=== PATIENT | female | born 1975 | race Asian ===

== ENCOUNTER 2018-06-22 08:05 | Outpatient (CLI) | payer OTHER | END 2018-06-22 08:06 | disposition home or self-care (01) | LOC: DI 08:05 | PROVIDERS: ATTEND Nurse Practitioner Adult Health | DX: Z01.810 Encounter for preprocedural cardiovascular examination (principal); C90.00 Multiple myeloma not having achieved remission | CPT/HCPCS: 93005; 93306; 94010 ==

== ENCOUNTER 2018-10-22 11:36 | Emergency (ER) | payer OTHER ==
[2018-10-22] MEDS ORDERED: ACETAMINOPHEN 500 MG TABLET PO STA (14:12)
[2018-10-22] MEDS ORDERED: KETOROLAC 15 MG/ML VIAL IVP STA (14:14)
[2018-10-22] MEDS ORDERED: METOCLOPRAMIDE 10 MG/2 ML VIAL IVP STA (14:14)
--- NOTE | 2018-10-22 14:17 | ED Physician Documentation ---
PD HPI HEADACHE - Stated complaint Stated Complaint: Headache - Chief complaint Chief Complaint: Neuro - History obtained from History obtained from: Patient - History of Present Illness Timing - onset: How many days ago (3) Timing - onset during: Rest Timing - duration: Days (3) Timing - details: Gradual onset Pain level max: 8 Pain level now: 3 Severity Comments: mild Worst headache ever?: Worst headache ever? (Yes but now better) Location: Front Quality: Other (Pressure) Associated symptoms: No: Fever, Stiff neck, Nausea, Vomiting, Syncope Improved by: No: Rest, Dark room, Quiet Worsened by: No: Light, Noise Contributing factors: Other (History of MM s/p stem cell transplant) Similar symptoms before: Other (History of migraines) - Treatment prior to arrival Treatment prior to arrival: None Review of Systems Ten Systems: 10 systems reviewed and negative Constitutional: reports: Reviewed and negative Eyes: reports: Reviewed and negative Ears: reports: Reviewed and negative Nose: reports: Reviewed and negative Throat: reports: Reviewed and negative Cardiac: reports: Reviewed and negative Respiratory: reports: Reviewed and negative GI: reports: Reviewed and negative : reports: Reviewed and negative Skin: reports: Reviewed and negative Musculoskeletal: reports: Reviewed and negative Neurologic: reports: Reviewed and negative Psychiatric: reports: Reviewed and negative Endocrine: reports: Reviewed and negative Immunocompromised: reports: Reviewed and negative PD PAST MEDICAL HISTORY - Past Medical History Past Medical History: Yes Cardiovascular: None Respiratory: Shortness of breath Neuro: None Endocrine/Autoimmune: None GI: GERD : None HEENT: None Psych: Depression, Anxiety Musculoskeletal: Chronic back pain Derm: Eczema Other Past Medical History: Multiple Myeloma - Past Surgical History 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 - Present Medications Home Medications: Ambulatory Orders Medication Instructions Recorded Confirmed Prochlorperazine Maleate 10 mg PO Q6H PRN #30 tablet 01/12/18 10/15/18 [Compazine] RX: Ondansetron HCl [Zofran] 8 mg PO Q8H PRN #30 tablet 01/12/18 10/15/18 RX: Loratadine 1 cap PO DAILY 02/05/18 10/15/18 RX: Senna [Senokot] 1 tab PO DAILY 02/05/18 10/15/18 Fluticasone Propionate [Flovent 50 mcg IH DAILY 09/21/18 10/15/18 Diskus] RX: Acyclovir 800 mg PO BID 09/21/18 10/15/18 RX: Dapsone 25 mg PO BID 09/21/18 10/15/18 RX: LORazepam [Ativan] 1 mg PO PRN PRN 09/21/18 10/15/18 RX: oxyCODONE [Roxicodone] 5 mg PO PRN PRN 09/21/18 10/15/18 Butalb/Acetaminophen/Caffeine 1 each PO 1-2XD PRN #30 capsule 10/22/18 [Fioricet 50-300-40 mg Capsule] RX: Fluconazole [Diflucan] 200 mg PO DAILY 3 Days #3 tablet 10/22/18 - Allergies Allergies/Adverse Reactions: Allergies Allergy/AdvReac Type Severity Reaction Status Date / Time sulfamethoxazole Allergy Unknown Verified 10/22/18 11:56 [From Bactrim] trimethoprim [From Bactrim] Allergy Unknown Verified 10/22/18 11:56 - Living Situation Living Arrangement: reports: At home - Social History Does the pt smoke?: No Does the pt drink ETOH?: No Does the pt have substance abuse?: No - Family History Family history: reports: Other (REviewed and not relevant) PD ED PE NORMAL - Vitals Vital signs reviewed: Yes - General General: Alert and oriented X 3, No acute distress - HEENT HEENT: PERRL - Neck Neck: Supple, no meningeal sign - Cardiac Cardiac: RRR, No murmur - Respiratory Respiratory: Clear bilaterally - Abdomen Abdomen: Normal bowel sounds, Soft, Non tender, Non distended - Derm Derm: Warm and dry - Extremities Extremities: No deformity - Neuro Neuro: Alert and oriented X 3 - Psych Psych: Normal mood, Normal affect Results - Vitals Vitals: Vital Signs - 24 hr 10/22/18 10/22/18 10/22/18 11:43 12:30 13:45 Temperature 36.7 C Heart Rate 74 67 86 Respiratory 16 20 18 Rate Blood Pressure 122/63 128/84 H 108/67 O2 Saturation 97 97 100 10/22/18 15:29 Temperature Heart Rate 87 Respiratory 18 Rate Blood Pressure 127/64 O2 Saturation 98 Oxygen O2 Source Room air - Labs Labs: Laboratory Tests 10/22/18 10/22/18 12:55 12:55 Urine Color YELLOW Urine Clarity CLEAR Urine pH 6.5 Ur Specific [place] 1.010 1.010 Urine Protein NEGATIVE Urine Glucose (UA) NEGATIVE Urine Ketones NEGATIVE Urine Occult Blood NEGATIVE Urine Nitrite NEGATIVE Urine Bilirubin NEGATIVE Urine Urobilinogen 0.2 (NORMAL) Ur Leukocyte Esterase NEGATIVE Ur Microscopic Review NOT INDICATED Urine Culture Comments NOT INDICATED Urine HCG, Qual NEGATIVE - Rads (name of study) Head CT Radiology: Prelim report reviewed, EMP read indepedently, See rad report, Other (No acute abnormality) PD MEDICAL DECISION MAKING - ED course ED course: 43-year-old female with history of multiple myeloma presents with headache. Headache is worst of life but head CT was unremarkable. Patient refused any treatment for headache. Patient's oncologist Dr. Jean was consulted who recommended routine follow-up given negative head CT. Dr. Jean also recommended Fioricet as needed for headache. Departure - Departure Disposition: 01 Home, Self Care Clinical Impression: Headache Qualifiers: Headache type: unspecified Headache chronicity pattern: acute headache Intractability: not intractable Qualified Code(s): R51 - Headache Condition: Stable Record reviewed to determine appropriate education?: Yes Instructions: ED Headache Tension Follow-Up: MITCHEL HAWKINS DO [Primary Care Provider] - Prescriptions: Butalb/Acetaminophen/Caffeine [Fioricet 50-300-40 mg Capsule] 1 each PO 1-2XD PRN #30 capsule PRN Reason: Headache Comments: Follow up with your doctors as scheduled. Take Fioricet as needed for headache according to prescription. Discharge Date/Time: 10/22/18 15:34
--- NOTE | 2018-10-22 14:58 | CT Report ---
Reason: Worst headache of life Procedure Date: 10/22/2018 Accession Number: [id number] / [id number] Procedure: CT - Head W/O CPT Code: FULL RESULT: EXAM: CT HEAD EXAM DATE: 10/22/2018 02:33 PM. CLINICAL HISTORY: Worst headache of life. COMPARISON: None. TECHNIQUE: Multiaxial CT images were obtained from the foramen magnum to the vertex. Reformats: Sagittal and coronal. IV contrast: None. In accordance with CT protocol optimization, one or more of the following dose reduction techniques were utilized for this exam: automated exposure control, adjustment of mA and/or KV based on patient size, or use of iterative reconstructive technique. FINDINGS: Parenchyma: No intraparenchymal hemorrhage. No evidence of mass, midline shift, or CT findings of infarction. White-white differentiation is distinct. Extraaxial Spaces: Normal for age. No subdural or epidural collections identified. Ventricles: Normal in size and position. Sinuses and Orbits: Imaged paranasal sinuses, orbits, and mastoids show no significant abnormality. Bones: No evidence of fracture or calvarial defect. Other: None. IMPRESSION: Negative for an acute or focal intracranial abnormality. RADIA
[2018-10-22 15:01] LABS: BILIRUBIN,URINE NEGATIVE (NEGATIVE); GLUCOSE, URINE (UA) NEGATIVE (NEGATIVE); KETONES,URINE (UA) NEGATIVE (NEGATIVE); LEUKOCYTE ESTERASE, URINE NEGATIVE (NEGATIVE); NITRITE,URINE NEGATIVE (NEGATIVE); OCCULT BLOOD,URINE NEGATIVE (NEGATIVE); PH,URINE 6.5 PH (5.0-7.5); PROTEIN,URINE NEGATIVE (NEGATIVE); UROBILINOGEN,URINE 0.2 (NORMAL) E.U./dL (NORMAL)
[2018-10-22 15:03] LABS: CLARITY,URINE CLEAR (CLEAR)
[2018-10-22 15:05] LABS: HCG UR QUAL NEGATIVE
[2018-10-22 15:30] VITALS: BP 127/64
== END 2018-10-22 15:34 | disposition home or self-care (01) ==
LOC: ED 11:36
DX: R51 Headache (principal); Z85.79 Personal history of other malignant neoplasms of lymphoid, hematopoietic and related tissues
CPT/HCPCS: 70450; 81001; 81003; 81025; 87086; 99283; 99284

== ENCOUNTER 2018-11-14 14:47 | Outpatient (CLI) | payer OTHER ==
--- NOTE | 2018-11-15 10:36 | MRI Report ---
Reason: MULIPLE MYLOMA Procedure Date: 11/14/2018 Accession Number: [id number] / [id number] Procedure: MRI - Bone Marrow Bld Supply W/O CPT Code: 61149 FULL RESULT: EXAM: MRI BONE MARROW SURVEY EXAM DATE: 11/14/2018 03:51 PM CLINICAL HISTORY: Multiple myeloma. COMPARISON: None. TECHNIQUE: Coronal T1 and STIR of the chest, abdomen, and pelvis. Sagittal T1, T2, and STIR of the spine. Coronal T1 and STIR of the humeri, femurs, and tibias and fibulas. FINDINGS: Spine: Degenerative disk changes and osteophytosis at C3-C4, C4-C5, and C5-C6. Degenerative disk changes at C7-T1. Mild canal stenosis from C3-C4 to C5-C6. Mild anterior wedge deformity of the T11 and T12 vertebral bodies. No acute fracture. No bone lesions. Normal marrow signal. Chest, abdomen, and pelvis: No bone lesions. The visualized organs are unremarkable. Humeri: No acute fracture or bone lesions. Lower extremities: No acute fracture or bone lesions. IMPRESSION: 1. Degenerative changes and osteophytosis at the spine. Mild canal stenoses from C3-C4 to C5-C6. 2. Mild anterior wedge deformity of the T11 and T12 vertebral bodies which may represent normal variance or may be due to previous old compression fractures. 3. No acute fracture or bone lesions. RADIA
== END 2018-11-14 14:48 | disposition home or self-care (01) ==
LOC: DI 14:47
PROVIDERS: ATTEND Internal Medicine Hematology & Oncology
DX: C90.00 Multiple myeloma not having achieved remission (principal); M50.33 Other cervical disc degeneration, cervicothoracic region; M48.03 Spinal stenosis, cervicothoracic region
CPT/HCPCS: 77084

== ENCOUNTER 2019-02-04 08:30 | Outpatient (CLI) | payer OTHER ==
[2019-02-04 09:00] LABS: BASOPHILS # (AUTO) 0.2 10^3/uL (0.0-0.1); BASOPHILS % (AUTO) 3.9 %; EOSINOPHILS # (AUTO) 0.1 10^3/uL (0.0-0.7); EOSINOPHILS % (AUTO) 2.2 %; HGB - HEMOGLOBIN 11.3 g/dL (12.0-16.0); LYMPHOCYTES # (AUTO) 1.1 10^3/uL (1.5-3.5); LYMPHOCYTES % (AUTO) 26.5 %; MEAN CORPUSCULAR HEMOGLOBIN 35.4 pg (27.0-31.0); MEAN CORPUSCULAR HGB CONC 33.9 g/dL (32.0-36.0); MEAN CORPUSCULAR VOLUME 104.7 fL (81.0-99.0); MEAN PLATELET VOLUME 6.5 fL (7.9-10.8); MONOCYTES # (AUTO) 0.4 10^3/uL (0.0-1.0); MONOCYTES % (AUTO) 9.6 %; NEUTROPHILS # (AUTO) 2.4 10^3/uL (1.5-6.6); NEUTROPHILS % (AUTO) 57.8 %; PLT - PLATELET COUNT 262 10^3/uL (130-450); RED BLOOD COUNT 3.18 10^6/uL (4.20-5.40); RED CELL DISTRIBUTION WIDTH 14.1 % (12.0-15.0); WHITE BLOOD COUNT 4.1 x10^3/uL (4.8-10.8)
[2019-02-04 09:14] LABS: ALBUMIN 4.2 g/dL (3.2-5.5); ALBUMIN/GLOBULIN RATIO 1.6 (1.0-2.2); CALCIUM 9.2 mg/dL (8.5-10.3); CREATININE 0.5 mg/dL (0.4-1.0); TOTAL PROTEIN 6.8 g/dL (6.7-8.2)
[2019-02-06 22:16] LABS: ALBUMIN 4.2 g/dL (3.8-4.8); ALPHA 1 GLOBULIN 0.3 g/dL (0.2-0.3); ALPHA 2 GLOBULIN 0.6 g/dL (0.5-0.9); BETA 1 GLOBULIN 0.4 g/dL (0.4-0.6); BETA 2 GLOBULIN 0.3 g/dL (0.2-0.5)
== END 2019-02-04 08:31 | disposition home or self-care (01) ==
LOC: LAB 08:30
PROVIDERS: ATTEND Internal Medicine
DX: C90.00 Multiple myeloma not having achieved remission (principal)
CPT/HCPCS: 36415; 80053; 81599; 82784; 83883; 84155; 84165; 85025; 86334

== ENCOUNTER 2019-03-03 23:28 | Emergency (ER) | payer OTHER ==
--- NOTE | 2019-03-03 23:50 | ED Physician Documentation ---
History of Present Illness - Stated complaint Stated Complaint: FEVER - Chief complaint Chief Complaint: Fever - History obtained from History obtained from: Patient - History of Present Illness Timing: Yesterday - Additonal information Additional information: Patient is a 43-year-old female with history of multiple myeloma currently undergoing oral chemotherapy and status post stem cell transplant in August 2018 presenting with 1 day of elevated temperature at home. Patient reports temperature maximum of 100.9 F. Patient notes that yesterday she woke up with a sore throat and also had generalized body aches and nausea without vomiting. Patient did take Tylenol at that time. Patient denies complications with port in right chest such as erythema or pain, as well as other chest pain, shortness of breath, productive cough, abdominal pain, urinary changes, or stool changes. Patient contacted on-call oncology because of elevated temperature earlier tonight and was directed to the ED. No other improving or worsening factors noted. Patient does receive IV chemotherapy every 3 months with last therapy in January 2019. Patient also is on dexamethasone periodically with her chemotherapy with last steroid given last week. 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 Medications Home Medications: Ambulatory Orders Medication Instructions Recorded Confirmed Ondansetron HCl [Zofran] 8 mg PO Q8H PRN #30 tablet 01/12/18 02/25/19 Loratadine 1 cap PO DAILY 02/05/18 02/25/19 Senna [Senokot] 1 tab PO DAILY 02/05/18 02/25/19 Acyclovir 800 mg PO BID 09/21/18 02/25/19 Dapsone 25 mg PO BID 09/21/18 02/25/19 LORazepam [Ativan] 1 mg PO PRN PRN 09/21/18 02/25/19 oxyCODONE [Roxicodone] 5 mg PO PRN PRN 09/21/18 02/25/19 Butalb/Acetaminophen/Caffeine 1 each PO 1-2XD PRN #30 capsule 10/22/18 02/25/19 [Fioricet 50-300-40 mg Capsule] Pomalidomide [Pomalyst] 2 mg PO DAILY 12/31/18 02/25/19 dexAMETHasone [Decadron] 12 mg PO ONCE 12/31/18 02/25/19 Doxycycline Hyclate 100 mg PO BID 02/25/19 02/25/19 Ixazomib Citrate [Ninlaro] 2.3 mg PO DAILY 02/25/19 02/25/19 Spironolactone 50 mg PO BID 02/25/19 02/25/19 Escitalopram [Lexapro] 10 mg PO DAILY #30 tablet 03/01/19 - Allergies Allergies/Adverse Reactions: Allergies Allergy/AdvReac Type Severity Reaction Status Date / Time sulfamethoxazole Allergy Unknown Verified 03/03/19 23:42 [From Bactrim] trimethoprim [From Bactrim] Allergy Unknown Verified 03/03/19 23:42 lenalidomide [From Revlimid] AdvReac Hives Verified 03/03/19 23:42 - Social History Does the pt smoke?: No Does the pt drink ETOH?: No Does the pt have substance abuse?: No PD ED PE NORMAL - Vitals Vital signs reviewed: Yes - General General: Alert and oriented X 3, No acute distress, Well developed/nourished - HEENT HEENT: Atraumatic, Moist mucous membranes, Pharynx benign - Cardiac Cardiac: RRR, No murmur, Other (Port in place over right chest, uncomplicated) - Respiratory Respiratory: No respiratory distress, Clear bilaterally - Abdomen Abdomen: Normal bowel sounds, Soft, Non tender, Non distended - Derm Derm: Normal color, Warm and dry, No rash - Extremities Extremities: No deformity, No tenderness to palpate - Neuro Neuro: Alert and oriented X 3, No motor deficit, No sensory deficit - Psych Psych: Normal mood, Normal affect Results - Vitals Vitals: Vital Signs - 24 hr 03/03/19 23:38 Temperature 36.7 C Heart Rate 101 H Respiratory 16 Rate Blood Pressure 104/52 L O2 Saturation 98 Oxygen O2 Source Room air - Labs Labs: Laboratory Tests 03/04/19 03/04/19 03/04/19 00:15 00:40 00:40 WBC 6.1 RBC 3.06 L Hgb 10.8 L Hct 32.5 L MCV 106.0 H MCH 35.2 H MCHC 33.2 RDW 15.2 H Plt Count 236 MPV 6.5 L Neut # (Auto) 3.2 Lymph # (Auto) 1.1 L [place] # (Auto) 1.5 H Eos # (Auto) 0.1 Baso # (Auto) 0.1 Absolute Nucleated RBC 0.01 Nucleated RBC % 0.1 Sodium 140 Potassium 3.5 Chloride 103 Carbon Dioxide 26 Anion Gap 11.0 BUN 9 Creatinine 0.7 Estimated GFR (MDRD) 91 Glucose 145 H Lactic Acid Calcium 9.4 Total Bilirubin 1.0 AST 23 ALT 15 Alkaline Phosphatase 47 Total Protein 6.9 Albumin 4.0 Globulin 2.9 Albumin/Globulin Ratio 1.4 Lipase 25 Urine Color YELLOW Urine Clarity CLEAR Urine pH 5.5 Ur Specific [place] 1.010 Urine Protein NEGATIVE Urine Glucose (UA) NEGATIVE Urine Ketones NEGATIVE Urine Occult Blood NEGATIVE Urine Nitrite NEGATIVE Urine Bilirubin NEGATIVE Urine Urobilinogen 0.2 (NORMAL) Ur Leukocyte Esterase NEGATIVE Ur Microscopic Review NOT INDICATED Urine Culture Comments NOT INDICATED Urine HCG, Qual NEGATIVE Group A Strep Rapid 03/04/19 03/04/19 00:40 00:40 WBC RBC Hgb Hct MCV MCH MCHC RDW Plt Count MPV Neut # (Auto) Lymph # (Auto) [place] # (Auto) Eos # (Auto) Baso # (Auto) Absolute Nucleated RBC Nucleated RBC % Sodium Potassium Chloride Carbon Dioxide Anion Gap BUN Creatinine Estimated GFR (MDRD) Glucose Lactic Acid 1.9 Calcium Total Bilirubin AST ALT Alkaline Phosphatase Total Protein Albumin Globulin Albumin/Globulin Ratio Lipase Urine Color Urine Clarity Urine pH Ur Specific [place] Urine Protein Urine Glucose (UA) Urine Ketones Urine Occult Blood Urine Nitrite Urine Bilirubin Urine Urobilinogen Ur Leukocyte Esterase Ur Microscopic Review Urine Culture Comments Urine HCG, Qual Group A Strep Rapid Negative PD MEDICAL DECISION MAKING - ED course Complexity details: reviewed old records, reviewed results, re-evaluated patient, considered differential, d/w patient ED course: Patient presenting with reported fever at home associated with sore throat, generalized body aches, and nausea. Do feel the patient could be experiencing a viral illness but also considered tonsillitis, pharyngitis, pneumonia, UTI, ba cteremia, neutropenic fever, particularly given patient's immunosuppressed history. At this time, patient is afebrile and does not appear to be experiencing a systemic illness or sepsis/septic shock. Patient started on IV fluids but did not require other medication. Lab work including lactic acid and blood cultures obtained. Screening lab work relatively unremarkable except for changes indicative of underlying disease process. No signs of infection or other abnormalities found. Blood cultures pending. Urinalysis also unremarkable and urine culture pending. Rapid strep test returned negative. Chest x-ray also returned unremarkable. Patient continued to be monitored in the ED without further complaint. At this time, feel that it is safe to discharge patient home with strict return precautions, supportive care recommendations, and advisement of following up with oncologist tomorrow. Patient voiced understanding and is comfortable with discharge plan. Departure - Departure Disposition: 01 Home, Self Care Clinical Impression: Fever Qualifiers: Fever type: unspecified Qualified Code(s): R50.9 - Fever, unspecified Condition: Good Follow-Up: MITCHEL HAWKINS DO [Primary Care Provider] - Tomorrow Comments: Please continue all home medications as previously instructed. Recommend hydration, healthy diet, rest, and contacting your oncologist tomorrow for appropriate follow-up. Return to ED sooner if experience worsening symptoms or other concerns.
[2019-03-04] MEDS ORDERED: SODIUM CHLORIDE 0.9% 1,000 ML IV ONE (00:07)
[2019-03-04 00:23] LABS: BILIRUBIN,URINE NEGATIVE (NEGATIVE); GLUCOSE, URINE (UA) NEGATIVE (NEGATIVE); KETONES,URINE (UA) NEGATIVE (NEGATIVE); LEUKOCYTE ESTERASE, URINE NEGATIVE (NEGATIVE); NITRITE,URINE NEGATIVE (NEGATIVE); OCCULT BLOOD,URINE NEGATIVE (NEGATIVE); PH,URINE 5.5 PH (5.0-7.5); PROTEIN,URINE NEGATIVE (NEGATIVE); UROBILINOGEN,URINE 0.2 (NORMAL) E.U./dL (NORMAL)
[2019-03-04 00:24] LABS: CLARITY,URINE CLEAR (CLEAR); HCG UR QUAL NEGATIVE
--- NOTE | 2019-03-04 00:33 | XRAY Report ---
Reason: cough Procedure Date: 03/04/2019 Accession Number: [id number] / [id number] Procedure: XR - Chest 2 View X-Ray CPT Code: 72525 FULL RESULT: EXAM: CHEST RADIOGRAPHY EXAM DATE: 03/04/2019 12:23 AM. CLINICAL HISTORY: Cough. COMPARISON: None. TECHNIQUE: 2 views. FINDINGS: Lungs/Pleura: No focal opacities evident. No pleural effusion. No pneumothorax. Normal volumes. Mediastinum: Heart and mediastinal contours are unremarkable. Other: Stable right Port-A-Cath. IMPRESSION: No acute process seen in the chest. RADIA
[2019-03-04 00:54] LABS: BASOPHILS # (AUTO) 0.1 10^3/uL (0.0-0.1); BASOPHILS % (AUTO) 2.3 %; EOSINOPHILS # (AUTO) 0.1 10^3/uL (0.0-0.7); EOSINOPHILS % (AUTO) 2.1 %; HGB - HEMOGLOBIN 10.8 g/dL (12.0-16.0); LYMPHOCYTES # (AUTO) 1.1 10^3/uL (1.5-3.5); LYMPHOCYTES % (AUTO) 17.4 %; MEAN CORPUSCULAR HEMOGLOBIN 35.2 pg (27.0-31.0); MEAN CORPUSCULAR HGB CONC 33.2 g/dL (32.0-36.0); MEAN PLATELET VOLUME 6.5 fL (7.9-10.8); MONOCYTES # (AUTO) 1.5 10^3/uL (0.0-1.0); MONOCYTES % (AUTO) 25.1 %; NEUTROPHILS # (AUTO) 3.2 10^3/uL (1.5-6.6); NEUTROPHILS % (AUTO) 53.1 %; PLT - PLATELET COUNT 236 10^3/uL (130-450); RED BLOOD COUNT 3.06 10^6/uL (4.20-5.40); RED CELL DISTRIBUTION WIDTH 15.2 % (12.0-15.0); WHITE BLOOD COUNT 6.1 x10^3/uL (4.8-10.8)
[2019-03-04 01:02] LABS: ALBUMIN/GLOBULIN RATIO 1.4 (1.0-2.2); CALCIUM 9.4 mg/dL (8.5-10.3); CREATININE 0.7 mg/dL (0.4-1.0); TOTAL PROTEIN 6.9 g/dL (6.7-8.2)
[2019-03-04 01:23] VITALS: BP 120/66
== END 2019-03-04 01:30 | disposition home or self-care (01) ==
LOC: ED 23:28
DX: R50.9 Fever, unspecified (principal); R11.0 Nausea; C90.00 Multiple myeloma not having achieved remission; Z94.84 Stem cells transplant status
CPT/HCPCS: 36415; 71046; 80053; 81001; 81003; 81025; 83605; 83690; 85025; 87040; 87070; 87086; 87430; 96374; 99282; 99283

== ENCOUNTER 2019-03-05 10:05 | Emergency (ER) | payer OTHER ==
[2019-03-05 10:49] LABS: BASOPHILS # (AUTO) 0.1 10^3/uL (0.0-0.1); BASOPHILS % (AUTO) 1.3 %; EOSINOPHILS # (AUTO) 0.1 10^3/uL (0.0-0.7); EOSINOPHILS % (AUTO) 1.5 %; HGB - HEMOGLOBIN 10.7 g/dL (12.0-16.0); LYMPHOCYTES # (AUTO) 0.9 10^3/uL (1.5-3.5); LYMPHOCYTES % (AUTO) 9.7 %; MEAN CORPUSCULAR HEMOGLOBIN 35.3 pg (27.0-31.0); MEAN CORPUSCULAR HGB CONC 33.8 g/dL (32.0-36.0); MEAN CORPUSCULAR VOLUME 104.5 fL (81.0-99.0); MEAN PLATELET VOLUME 6.3 fL (7.9-10.8); MONOCYTES # (AUTO) 1.8 10^3/uL (0.0-1.0); MONOCYTES % (AUTO) 19.9 %; NEUTROPHILS # (AUTO) 6.1 10^3/uL (1.5-6.6); NEUTROPHILS % (AUTO) 67.6 %; PLT - PLATELET COUNT 227 10^3/uL (130-450); RED BLOOD COUNT 3.04 10^6/uL (4.20-5.40); RED CELL DISTRIBUTION WIDTH 15.2 % (12.0-15.0); WHITE BLOOD COUNT 9.1 x10^3/uL (4.8-10.8)
[2019-03-05 11:04] LABS: ALBUMIN 4.2 g/dL (3.2-5.5); ALBUMIN/GLOBULIN RATIO 1.6 (1.0-2.2); BILIRUBIN,TOTAL 1.3 mg/dL (0.2-1.0); CREATININE 0.6 mg/dL (0.4-1.0); TOTAL PROTEIN 6.8 g/dL (6.7-8.2)
[2019-03-05 11:21] LABS: BILIRUBIN,URINE NEGATIVE (NEGATIVE); GLUCOSE, URINE (UA) NEGATIVE (NEGATIVE); KETONES,URINE (UA) NEGATIVE (NEGATIVE); LEUKOCYTE ESTERASE, URINE NEGATIVE (NEGATIVE); NITRITE,URINE NEGATIVE (NEGATIVE); OCCULT BLOOD,URINE NEGATIVE (NEGATIVE); PROTEIN,URINE NEGATIVE (NEGATIVE); UROBILINOGEN,URINE 0.2 (NORMAL) E.U./dL (NORMAL)
--- NOTE | 2019-03-05 11:22 | XRAY Report ---
Reason: SOB Procedure Date: 03/05/2019 Accession Number: [id number] / [id number] Procedure: XR - Chest 1 View X-Ray CPT Code: 86457 FULL RESULT: EXAM: CHEST RADIOGRAPHY EXAM DATE: 03/05/2019 11:09 AM. CLINICAL HISTORY: Shortness of breath. COMPARISON: CHEST 2 VIEW 03/04/2019 12:18 AM. TECHNIQUE: 1 view. FINDINGS: Lungs/Pleura: No focal opacities evident. No pleural effusion. No pneumothorax. Mediastinum: Within exam limitations, the cardiomediastinal contour is normal. Other: Right IJ Port-A-Cath with tip overlying cavoatrial junction. IMPRESSION: No consolidation. RADIA
[2019-03-05 11:25] LABS: CLARITY,URINE CLEAR (CLEAR); HCG UR QUAL NEGATIVE
[2019-03-05] MEDS ORDERED: IPRATROPIUM/ALBUTEROL 3 ML NEB INH STA (11:49)
[2019-03-05] MEDS ORDERED: LACTATED RINGERS 2,000 ML IV STA (11:59)
[2019-03-05] MEDS ORDERED: ACETAMINOPHEN 325 MG TABLET PO STA (11:59)
[2019-03-05] MEDS ORDERED: BENZONATATE 100 MG CAPSULE PO STA (11:59)
[2019-03-05] MEDS ORDERED: levoFLOXacin 250 MG TABLET PO STA (11:59)
--- NOTE | 2019-03-05 12:02 | ED Physician Documentation ---
History of Present Illness - Stated complaint Stated Complaint: FEVER/ACHES - Chief complaint Chief Complaint: Fever - History obtained from History obtained from: Patient - History of Present Illness Timing: Other (43-year-old woman with history of multiple myeloma status post autologous stem cell transplant in August of last year presents with 2 days of mild cough, sore throat, body aches, and fever up to 101.5 yesterday. She was seen here the other night for same, labs, x-ray, urine, strep test, and blood cultures are negative to date. Symptoms are persistent and she is worried because she is traveling in 2 days to [place].) Review of Systems Ten Systems: 10 systems reviewed and negative Constitutional: reports: Fever, Chills, Myalgias, Fatigue Nose: denies: Rhinorrhea / runny nose, Congestion Throat: reports: Sore throat Respiratory: reports: Cough. denies: Dyspnea GI: denies: Abdominal Pain, Nausea, Vomiting, Diarrhea (but loose) Skin: reports: Other (port not bothering her). 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 Home Medications: Ambulatory Orders Medication Instructions Recorded Confirmed Ondansetron HCl [Zofran] 8 mg PO Q8H PRN #30 tablet 01/12/18 02/25/19 Loratadine 1 cap PO DAILY 02/05/18 02/25/19 Senna [Senokot] 1 tab PO DAILY 02/05/18 02/25/19 Acyclovir 800 mg PO BID 09/21/18 02/25/19 Dapsone 25 mg PO BID 09/21/18 02/25/19 LORazepam [Ativan] 1 mg PO PRN PRN 09/21/18 02/25/19 oxyCODONE [Roxicodone] 5 mg PO PRN PRN 09/21/18 02/25/19 Butalb/Acetaminophen/Caffeine 1 each PO 1-2XD PRN #30 capsule 10/22/18 02/25/19 [Fioricet 50-300-40 mg Capsule] Pomalidomide [Pomalyst] 2 mg PO DAILY 12/31/18 02/25/19 dexAMETHasone [Decadron] 12 mg PO ONCE 12/31/18 02/25/19 Doxycycline Hyclate 100 mg PO BID 02/25/19 02/25/19 Ixazomib Citrate [Ninlaro] 2.3 mg PO DAILY 02/25/19 02/25/19 Spironolactone 50 mg PO BID 02/25/19 02/25/19 Escitalopram [Lexapro] 10 mg PO DAILY #30 tablet 03/01/19 Benzonatate [Tessalon Perle] 100 - 200 mg PO TID PRN #30 capsule 03/05/19 Levofloxacin [Levaquin] 750 mg PO DAILY #6 tablet 03/05/19 guaiFENesin/CODEINE [Robitussin AC] 5 - 10 ml PO Q6H PRN #120 ml 03/05/19 - Allergies Allergies/Adverse Reactions: Allergies Allergy/AdvReac Type Severity Reaction Status Date / Time sulfamethoxazole Allergy Unknown Verified 03/03/19 23:42 [From Bactrim] trimethoprim [From Bactrim] Allergy Unknown Verified 03/03/19 23:42 lenalidomide [From Revlimid] AdvReac Hives Verified 03/03/19 23:42 - Social History Does the pt smoke?: No Smoking Status: Never smoker Does the pt drink ETOH?: No Does the pt have substance abuse?: No - Family History Family history: reports: Non contributory PD ED PE NORMAL - Vitals Vital signs reviewed: Yes - General General: Alert and oriented X 3, Other (Occasional cough) - HEENT HEENT: PERRL, EOMI, Ears normal, Pharynx benign - Neck Neck: Supple, no meningeal sign, No bony TTP - Cardiac Cardiac: RRR, No murmur - Respiratory Respiratory: No respiratory distress, Other (Slightly diminished at the right base) - Abdomen Abdomen: Non tender - Back Back: No spinal TTP - Derm Derm: Normal color, Warm and dry, No rash - Extremities Extremities: No edema, No calf tenderness / cord - Neuro Neuro: Alert and oriented X 3, Normal speech Results - Vitals Vitals: Vital Signs - 24 hr 03/05/19 03/05/19 10:16 10:18 Temperature 37.3 C Heart Rate 112 H Respiratory 20 20 Rate Blood Pressure 121/76 O2 Saturation 93 Oxygen O2 Source Room air - Labs Labs: Laboratory Tests 03/05/19 03/05/19 03/05/19 10:38 10:38 10:38 WBC 9.1 RBC 3.04 L Hgb 10.7 L Hct 31.7 L MCV 104.5 H MCH 35.3 H MCHC 33.8 RDW 15.2 H Plt Count 227 MPV 6.3 L Neut # (Auto) 6.1 Lymph # (Auto) 0.9 L [place] # (Auto) 1.8 H Eos # (Auto) 0.1 Baso # (Auto) 0.1 Absolute Nucleated RBC 0.00 Nucleated RBC % 0.0 Sodium 137 Potassium 3.7 Chloride 103 Carbon Dioxide 23 Anion Gap 11.0 BUN 9 Creatinine 0.6 Estimated GFR (MDRD) 109 Glucose 114 H Lactic Acid Calcium 9.0 Total Bilirubin 1.3 H AST 18 ALT 16 Alkaline Phosphatase 42 Troponin I < 0.04 Total Protein 6.8 Albumin 4.2 Globulin 2.6 Albumin/Globulin Ratio 1.6 Lipase 24 Urine Color Urine Clarity Urine pH Ur Specific [place] Urine Protein Urine Glucose (UA) Urine Ketones Urine Occult Blood Urine Nitrite Urine Bilirubin Urine Urobilinogen Ur Leukocyte Esterase Ur Microscopic Review Urine Culture Comments Urine HCG, Qual 03/05/19 03/05/19 10:38 11:10 WBC RBC Hgb Hct MCV MCH MCHC RDW Plt Count MPV Neut # (Auto) Lymph # (Auto) [place] # (Auto) Eos # (Auto) Baso # (Auto) Absolute Nucleated RBC Nucleated RBC % Sodium Potassium Chloride Carbon Dioxide Anion Gap BUN Creatinine Estimated GFR (MDRD) Glucose Lactic Acid 0.9 Calcium Total Bilirubin AST ALT Alkaline Phosphatase Troponin I Total Protein Albumin Globulin Albumin/Globulin Ratio Lipase Urine Color YELLOW Urine Clarity CLEAR Urine pH 7.0 Ur Specific [place] <=1.005 Urine Protein NEGATIVE Urine Glucose (UA) NEGATIVE Urine Ketones NEGATIVE Urine Occult Blood NEGATIVE Urine Nitrite NEGATIVE Urine Bilirubin NEGATIVE Urine Urobilinogen 0.2 (NORMAL) Ur Leukocyte Esterase NEGATIVE Ur Microscopic Review NOT INDICATED Urine Culture Comments NOT INDICATED Urine HCG, Qual NEGATIVE - Rads (name of study) 2v chest Radiology: EMP read contemporaneously (NAD) PD MEDICAL DECISION MAKING - ED course ED course: 43-year-old woman undergoing oral chemotherapy for multiple myeloma presents with fever, chills, body aches and cough. Slightly diminished at the right base, could be occult pneumonia. White count is reassuring, other blood work is unremarkable. Blood cultures from the other night are no growth to date. She is administered IV fluids, levofloxacin given her immune compromised status but she is not neutropenic. Departure - Departure Disposition: 01 Home, Self Care Clinical Impression: Cough Fever Qualifiers: Fever type: due to other condition Qualified Code(s): R50.81 - Fever presenting with conditions classified elsewhere Multiple myeloma Qualifiers: Multiple myeloma remission status: unspecified Qualified Code(s): C90.00 - Multiple myeloma not having achieved remission Condition: Good Record reviewed to determine appropriate education?: Yes Instructions: ED Fever Unconf Cause Prescriptions: Benzonatate [Tessalon Perle] 100 - 200 mg PO TID PRN #30 capsule PRN Reason: Cough guaiFENesin/CODEINE [Robitussin AC] 5 - 10 ml PO Q6H PRN #120 ml PRN Reason: Cough Levofloxacin [Levaquin] 750 mg PO DAILY #6 tablet Comments: As discussed I think it is fine to take something for the temperature now, either Tylenol or ibuprofen. Return for new or worsening symptoms or if not better in 2 days time. Follow-up with your oncologist as scheduled.
[2019-03-05 15:00] VITALS: BP 127/72
== END 2019-03-05 14:51 | disposition home or self-care (01) ==
LOC: ED 10:05
DX: R50.9 Fever, unspecified (principal); R05 Cough; C90.00 Multiple myeloma not having achieved remission; Z94.84 Stem cells transplant status; Z79.899 Other long term (current) drug therapy
CPT/HCPCS: 36415; 71045; 80053; 81003; 81025; 83605; 83690; 84484; 85025; 87040; 94640; 96374; 99283; 99284; A9270; J7120; 81001; 87086

== ENCOUNTER 2019-08-12 08:00 | Outpatient (CLI) | payer OTHER ==
[2019-08-12 13:14] LABS: BASOPHILS # (AUTO) 0.1 10^3/uL (0.0-0.1); BASOPHILS % (AUTO) 1.7 %; EOSINOPHILS # (AUTO) 0.4 10^3/uL (0.0-0.7); EOSINOPHILS % (AUTO) 6.2 %; HGB - HEMOGLOBIN 13.9 g/dL (12.0-16.0); LYMPHOCYTES # (AUTO) 1.5 10^3/uL (1.5-3.5); LYMPHOCYTES % (AUTO) 22.3 %; MEAN CORPUSCULAR HEMOGLOBIN 34.7 pg (27.0-31.0); MEAN CORPUSCULAR HGB CONC 35.1 g/dL (32.0-36.0); MEAN CORPUSCULAR VOLUME 98.8 fL (81.0-99.0); MEAN PLATELET VOLUME 8.5 fL (7.9-10.8); MONOCYTES # (AUTO) 1.6 10^3/uL (0.0-1.0); MONOCYTES % (AUTO) 24.1 %; NEUTROPHILS % (AUTO) 44.5 %; PLT - PLATELET COUNT 244 10^3/uL (130-450); RED BLOOD COUNT 4.01 10^6/uL (4.20-5.40); RED CELL DISTRIBUTION WIDTH 13.7 % (12.0-15.0); WHITE BLOOD COUNT 6.7 x10^3/uL (4.8-10.8)
[2019-08-12 14:37] LABS: PLATELET ESTIMATE, MANUAL NORMAL (130-450,000) (NORMAL); PLATELET MORPHOLOGY NORMAL APPEARANCE (NORMAL); RBC MORPHOLOGY (MULTIPLE) TEARDROP CELLS (NORMAL)
[2019-08-16 22:03] LABS: ALBUMIN 4.2 g/dL (3.8-4.8); ALPHA 1 GLOBULIN 0.3 g/dL (0.2-0.3); ALPHA 2 GLOBULIN 0.8 g/dL (0.5-0.9); BETA 1 GLOBULIN 0.5 g/dL (0.4-0.6); BETA 2 GLOBULIN 0.3 g/dL (0.2-0.5)
== END 2019-08-12 23:59 | disposition home or self-care (01) ==
LOC: LAB.R 08:00
PROVIDERS: ATTEND Internal Medicine
DX: C90.00 Multiple myeloma not having achieved remission (principal)
CPT/HCPCS: 80053; 81599; 84155; 84165; 85025

== ENCOUNTER 2019-09-02 16:03 | Outpatient (CLI) | payer OTHER ==
--- NOTE | 2019-09-03 08:19 | XRAY Report ---
Reason: FEVER, HEAVINESS IN CHEST Procedure Date: 09/02/2019 Accession Number: [id number] / [id number] Procedure: XR - Chest 2 View X-Ray CPT Code: 86510 Final Report FULL RESULT: EXAM: CHEST RADIOGRAPHY EXAM DATE: 09/02/2019 04:10 PM. CLINICAL HISTORY: Fever, heaviness in chest. COMPARISON: CHEST 1 VIEW 03/05/2019 10:55 AM. TECHNIQUE: 2 views. FINDINGS: Lungs/Pleura: No focal opacities evident. No pleural effusion. No pneumothorax. Normal volumes. Mediastinum: Heart and mediastinal contours are unremarkable. Other: Groshong port right chest, with distal tip at the SVC/right atrial junction.. IMPRESSION: No acute consolidations detected. RADIA
== END 2019-09-02 16:04 | disposition home or self-care (01) ==
LOC: DI 16:03
PROVIDERS: ATTEND Internal Medicine Hematology & Oncology
DX: R50.9 Fever, unspecified (principal); R09.89 Other specified symptoms and signs involving the circulatory and respiratory systems; Z95.828 Presence of other vascular implants and grafts; Z79.899 Other long term (current) drug therapy
CPT/HCPCS: 71046

== ENCOUNTER 2020-07-15 00:20 | Emergency (ER) | payer OTHER ==
--- NOTE | 2020-07-15 01:43 | ED Physician Documentation ---
History of Present Illness - Stated complaint Stated Complaint: RIB PX/CANT TAKE DEEP BREATH - Chief complaint Chief Complaint: Cardiac - History obtained from History obtained from: Patient - Additonal information Additional information: Patient is a 45-year-old female with a history of multiple myeloma. Patient's presenting with right-sided pleuritic chest pain. She describes the pain is worse on deep inspiration with without fevers however she did have a fever on triage.Patient denies any history of UT or stroke or PE or DVT. Review of Systems Constitutional: reports: Reviewed and negative Eyes: reports: Reviewed and negative Ears: reports: Reviewed and negative Nose: reports: Reviewed and negative Throat: reports: Reviewed and negative Cardiac: reports: Chest pain / pressure Respiratory: reports: Dyspnea GI: reports: Reviewed and negative : reports: Reviewed and negative Skin: reports: Reviewed and negative Musculoskeletal: reports: Reviewed and negative Neurologic: reports: Reviewed and negative Psychiatric: reports: Reviewed and negative Endocrine: reports: Reviewed and negative Immunocompromised: reports: Reviewed and negative PD PAST MEDICAL HISTORY - Past Medical History Cardiovascular: None Respiratory: Shortness of breath Neuro: None Endocrine/Autoimmune: None GI: GERD : None HEENT: None Psych: Depression, Anxiety Musculoskeletal: Chronic back pain Derm: Eczema - Past Surgical History 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 - Present Medications Home Medications: Ambulatory Orders Medication Instructions Recorded Confirmed Ondansetron HCl [Zofran] 8 mg PO Q8H PRN #30 tablet 01/12/18 07/15/20 Senna [Senokot] 1 tab PO DAILY PRN 02/05/18 07/15/20 Acyclovir 800 mg PO BID 09/21/18 07/15/20 LORazepam [Ativan] 1 mg PO PRN PRN 09/21/18 07/15/20 Butalb/Acetaminophen/Caffeine 1 each PO 1-2XD PRN #30 capsule 10/22/18 07/15/20 [Fioricet 50-300-40 mg Capsule] Pomalidomide [Pomalyst] 2 mg PO DAILY 12/31/18 07/15/20 Ixazomib Citrate [Ninlaro] 2.3 mg PO DAILY 02/25/19 07/15/20 Spironolactone 50 mg PO BID 02/25/19 07/15/20 Aspirin 1 tab ORAL DAILY 02/03/20 07/15/20 - Allergies Allergies/Adverse Reactions: Allergies Allergy/AdvReac Type Severity Reaction Status Date / Time sulfamethoxazole Allergy Unknown Verified 07/15/20 00:46 [From Bactrim] trimethoprim [From Bactrim] Allergy Unknown Verified 07/15/20 00:46 lenalidomide [From Revlimid] AdvReac Hives Verified 07/15/20 00:46 - Social History Does the pt smoke?: No Smoking Status: Never smoker Does the pt drink ETOH?: No Does the pt have substance abuse?: No PD ED PE NORMAL - Vitals Vital signs reviewed: Yes - General General: Alert and oriented X 3, No acute distress, Well developed/nourished - HEENT HEENT: Atraumatic, PERRL - Neck Neck: Supple, no meningeal sign - Cardiac Cardiac: RRR, No murmur, Strong equal pulses - Respiratory Respiratory: No respiratory distress, Clear bilaterally, Other (Tenderness palpation over the right anterior chest wall no deformities or ecchymosis noted no crepitus) - Abdomen Abdomen: Normal bowel sounds, Soft, Non tender, Non distended - Back Back: No CVA TTP, No spinal TTP - Derm Derm: Normal color, Warm and dry, No rash - Extremities Extremities: No deformity, No tenderness to palpate, Normal ROM s pain, No edema, No calf tenderness / cord - Neuro Neuro: Alert and oriented X 3, 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 Reproducible pain and ttp over the right breast at the 11 o clock position. No axillary or infraclavicular lymphadenopathy no discharge from the nipple no erythema of the area Mannie no crepitus no fluctuance or induration no masses palpated. Results - Vitals Vitals: Vital Signs - 24 hr 07/15/20 07/15/20 07/15/20 00:40 03:37 04:07 Temperature 38.4 C H 36.7 C Heart Rate 86 Respiratory 20 22 Rate Blood Pressure 144/74 H 120/73 O2 Saturation 99 99 07/15/20 05:34 Temperature Heart Rate 89 Respiratory 27 H Rate Blood Pressure 113/75 O2 Saturation 97 Oxygen O2 Source Room air - EKG (time done) 00:50 Rate: Other (No STEMI) - Labs Labs: Laboratory Tests 07/15/20 07/15/20 07/15/20 02:17 03:20 03:20 WBC 6.3 RBC 3.58 L Hgb 12.4 Hct 35.2 L MCV 98.3 MCH 34.6 H MCHC 35.2 RDW 13.3 Plt Count 171 MPV 8.2 Neut # (Auto) 3.6 Lymph # (Auto) 1.2 L [place] # (Auto) 1.3 H Eos # (Auto) 0.1 Baso # (Auto) 0.1 Absolute Nucleated RBC 0.00 Nucleated RBC % 0.0 PT INR APTT Sodium 136 Potassium 3.9 Chloride 102 Carbon Dioxide 25 Anion Gap 9.0 BUN 12 Creatinine 0.6 Estimated GFR (MDRD) 108 Glucose 116 H Lactic Acid Calcium 8.9 Magnesium 1.9 Total Bilirubin 0.8 AST 18 ALT 25 Alkaline Phosphatase 44 Total Creatine Kinase 88 Troponin I High Sens B-Natriuretic Peptide Total Protein 7.1 Albumin 4.0 Globulin 3.1 Albumin/Globulin Ratio 1.3 Lipase 23 Influenza A (Rapid) Negative Influenza B (Rapid) Negative 07/15/20 07/15/20 07/15/20 03:20 03:20 03:20 WBC RBC Hgb Hct MCV MCH MCHC RDW Plt Count MPV Neut # (Auto) Lymph # (Auto) [place] # (Auto) Eos # (Auto) Baso # (Auto) Absolute Nucleated RBC Nucleated RBC % PT 11.6 INR 1.0 APTT 79.4 H Sodium Potassium Chloride Carbon Dioxide Anion Gap BUN Creatinine Estimated GFR (MDRD) Glucose Lactic Acid Calcium Magnesium Total Bilirubin AST ALT Alkaline Phosphatase Total Creatine Kinase Troponin I High Sens < 2.3 L B-Natriuretic Peptide 20 Total Protein Albumin Globulin Albumin/Globulin Ratio Lipase Influenza A (Rapid) Influenza B (Rapid) 07/15/20 03:20 WBC RBC Hgb Hct MCV MCH MCHC RDW Plt Count MPV Neut # (Auto) Lymph # (Auto) [place] # (Auto) Eos # (Auto) Baso # (Auto) Absolute Nucleated RBC Nucleated RBC % PT INR APTT Sodium Potassium Chloride Carbon Dioxide Anion Gap BUN Creatinine Estimated GFR (MDRD) Glucose Lactic Acid 1.3 Calcium Magnesium Total Bilirubin AST ALT Alkaline Phosphatase Total Creatine Kinase Troponin I High Sens B-Natriuretic Peptide Total Protein Albumin Globulin Albumin/Globulin Ratio Lipase Influenza A (Rapid) Influenza B (Rapid) PD MEDICAL DECISION MAKING - ED course Complexity details: reviewed old records, reviewed results, re-evaluated patient (05:38 Pain-free.), considered differential, d/w patient ED course: 45-year-old female with a history of multiple myeloma on chemotherapy presents with right-sided chest and breast pain. CT Ana of the chest shows no pleural effusions shows no pulmonary embolus.Patient was treated with IV fluids, she also did have a fever on triage she denies having a fever she is not neutropenic she was given a dose empirically of Rocephin due to her fever and respiratory rate of 22. She is not hypoxic her fever has resolved with antipyretics she is pain-free now chest x-ray shows no infiltrate. Patient will be discharged today with close follow-up with her primary care provider as well as her oncologist COVID screening was sent she should self quarantine for the next 14 days and follow-up with results of her COVID test. Departure - Departure Disposition: 01 Home, Self Care Clinical Impression: Pleuritic chest pain Fever Qualifiers: Fever type: unspecified Qualified Code(s): R50.9 - Fever, unspecified Condition: Stable Instructions: ED Chest Pain Pleurisy Follow-Up: MITCHEL HAWKINS DO [Primary Care Provider] - 07/15/20 Comments: Please follow-up with your primary care provider and your oncologist today. Take either ibuprofen or Tylenol as needed for pain or fever. Follow-up for the results of your COVID test. Self quarantine for the next 14 days.
[2020-07-15] MEDS ORDERED: SODIUM CHLORIDE 0.9% 1,000 ML IV STA (01:48)
[2020-07-15] MEDS ORDERED: cefTRIAXone 1 GM VIAL IVP STA (01:48)
[2020-07-15] MEDS ORDERED: IBUPROFEN 800 MG TABLET PO STA (03:07)
[2020-07-15 03:28] LABS: BASOPHILS # (AUTO) 0.1 10^3/uL (0.0-0.1); BASOPHILS % (AUTO) 1.4 %; EOSINOPHILS # (AUTO) 0.1 10^3/uL (0.0-0.7); EOSINOPHILS % (AUTO) 2.2 %; HGB - HEMOGLOBIN 12.4 g/dL (12.0-16.0); LYMPHOCYTES # (AUTO) 1.2 10^3/uL (1.5-3.5); LYMPHOCYTES % (AUTO) 19.1 %; MEAN CORPUSCULAR HEMOGLOBIN 34.6 pg (27.0-31.0); MEAN CORPUSCULAR HGB CONC 35.2 g/dL (32.0-36.0); MEAN CORPUSCULAR VOLUME 98.3 fL (81.0-99.0); MEAN PLATELET VOLUME 8.2 fL (7.9-10.8); MONOCYTES # (AUTO) 1.3 10^3/uL (0.0-1.0); MONOCYTES % (AUTO) 20.3 %; NEUTROPHILS # (AUTO) 3.6 10^3/uL (1.5-6.6); NEUTROPHILS % (AUTO) 56.5 %; PLT - PLATELET COUNT 171 10^3/uL (130-450); RED BLOOD COUNT 3.58 10^6/uL (4.20-5.40); RED CELL DISTRIBUTION WIDTH 13.3 % (12.0-15.0); WHITE BLOOD COUNT 6.3 x10^3/uL (4.8-10.8)
[2020-07-15 03:34] LABS: PT - PROTHROMBIN TIME 11.6 secs (9.9-12.6)
[2020-07-15 03:41] LABS: PARTIAL THROMBOPLASTIN TIME 79.4 secs (24.9-33.3)
[2020-07-15] MEDS ORDERED: ONDANSETRON 4 MG/2 ML VIAL IVP STA (03:41)
[2020-07-15] MEDS ORDERED: MORPHINE 2 MG/ML CARPUJECT IVP STA (03:41)
[2020-07-15 03:42] LABS: ALBUMIN/GLOBULIN RATIO 1.3 (1.0-2.2); BILIRUBIN,TOTAL 0.8 mg/dL (0.2-1.0); CALCIUM 8.9 mg/dL (8.5-10.3); CREATININE 0.6 mg/dL (0.4-1.0); MAGNESIUM 1.9 mg/dL (1.7-2.8); TOTAL PROTEIN 7.1 g/dL (6.7-8.2)
[2020-07-15] MEDS ORDERED: IOVERSOL 320 100 ML VIAL IVP ONE ×2 (04:15→05:06)
[2020-07-15 06:16] VITALS: BP 110/63
--- NOTE | 2020-07-15 07:49 | CT Report ---
PROCEDURE: ANGIO CHEST W/WO INDICATIONS: CP/SOB, CA CONTRAST: IV CONTRAST: Optiray 320 ml: 60 PO CONTRAST: *NO PO CONTRAST TECHNIQUE: After the administration of intravenous contrast, 2 mm thick sections acquired from the pulmonary api yung to the posterior costophrenic angles. 3-dimensional maximum intensity projection (MIP) coronal a nd sagittal reformats were then acquired through the thorax. For radiation dose reduction, the follow ing was used: automated exposure control, adjustment of mA and/or kV according to patient size. COMPARISON: Chest x-ray 07/15/2020 FINDINGS: Image quality: Excellent. Pulmonary arteries: Pulmonary arteries are normal in size, and demonstrate no intraluminal filling d efects to suggest central pulmonary embolism. Lungs and pleura: Mild appearance of increased pulmonary vascularity. No pleural effusions or pneumot horax. Central and peripheral airways are patent. Mediastinum: Heart size is normal, without pericardial effusion. No mediastinal or hilar adenopathy . Thoracic aorta is normal in caliber and enhancement. Esophagus is normal in caliber, without hiat al hernia. Bones and chest wall: No suspicious bony lesions. Ribs and thoracic spine appear intact throughout. The thyroid is normal. No axillary or supraclavicular adenopathy. Abdomen: Visualized upper abdominal solid organs appear normal in the early arterial phase of enhanc ement. IMPRESSION: 1. No pulmonary embolism. 2. Mild increased pulmonary vascularity, suggestive of edema. The above findings are concordant with preliminary report. Reviewed by: Leti Brewer MD on 07/15/2020 7:47 AM PDT Approved by: Leti Brewer MD on 07/15/2020 7:47 AM PDT Station ID: [id number]
--- NOTE | 2020-07-15 08:11 | XRAY Report ---
PROCEDURE: Chest 1 View X-Ray INDICATIONS: sob TECHNIQUE: One view of the chest was acquired. COMPARISON: 09/02/2019, 03/05/2019 FINDINGS: Surgical changes and devices: Right chest wall Port-A-Cath is stable. Lungs and pleura: No pleural effusions or pneumothorax. Lungs are clear. Mediastinum: Mediastinal contours appear normal. Heart size is normal. Bones and chest wall: No suspicious bony lesions. Overlying soft tissues appear unremarkable. IMPRESSION: No acute cardiopulmonary disease process. Reviewed by: Mary Carballo MD, PhD on 07/15/2020 8:10 AM PDT Approved by: Mary Carballo MD, PhD on 07/15/2020 8:10 AM PDT Station ID: [id number]
== END 2020-07-15 06:45 | disposition home or self-care (01) ==
LOC: ED 00:20
DX: R07.81 Pleurodynia (principal); N64.4 Mastodynia; R50.9 Fever, unspecified; R06.00 Dyspnea, unspecified; Z20.828 Contact with and (suspected) exposure to other viral communicable diseases; C90.00 Multiple myeloma not having achieved remission; Z79.899 Other long term (current) drug therapy; Z79.82 Long term (current) use of aspirin
CPT/HCPCS: 36415; 71045; 71275; 80053; 82550; 83605; 83690; 83735; 83880; 84484; 85025; 85610; 85730; 87040; 87275; 87276; 87635; 93005; 96374; 96375; 99283; 99284; A9270; Q9967

== ENCOUNTER 2020-08-03 08:00 | Outpatient (CLI) | payer OTHER ==
[2020-08-03 10:50] LABS: BASOPHILS # (AUTO) 0.1 10^3/uL (0.0-0.1); EOSINOPHILS # (AUTO) 0.2 10^3/uL (0.0-0.7); EOSINOPHILS % (AUTO) 4.5 %; HGB - HEMOGLOBIN 13.1 g/dL (12.0-16.0); LYMPHOCYTES # (AUTO) 1.6 10^3/uL (1.5-3.5); MEAN CORPUSCULAR HEMOGLOBIN 34.1 pg (27.0-31.0); MEAN CORPUSCULAR HGB CONC 35.1 g/dL (32.0-36.0); MEAN CORPUSCULAR VOLUME 97.1 fL (81.0-99.0); MEAN PLATELET VOLUME 8.6 fL (7.9-10.8); MONOCYTES # (AUTO) 0.8 10^3/uL (0.0-1.0); MONOCYTES % (AUTO) 16.5 %; NEUTROPHILS # (AUTO) 2.3 10^3/uL (1.5-6.6); NEUTROPHILS % (AUTO) 45.2 %; PLT - PLATELET COUNT 238 10^3/uL (130-450); RED BLOOD COUNT 3.84 10^6/uL (4.20-5.40); RED CELL DISTRIBUTION WIDTH 13.2 % (12.0-15.0); WHITE BLOOD COUNT 5.1 x10^3/uL (4.8-10.8)
[2020-08-03 11:00] LABS: ALBUMIN 4.1 g/dL (3.2-5.5); ALBUMIN/GLOBULIN RATIO 1.2 (1.0-2.2); BILIRUBIN,TOTAL 0.8 mg/dL (0.2-1.0); CALCIUM 9.3 mg/dL (8.5-10.3); CREATININE 0.6 mg/dL (0.4-1.0); TOTAL PROTEIN 7.4 g/dL (6.7-8.2)
== END 2020-08-03 23:59 | disposition home or self-care (01) ==
LOC: LAB.R 08:00
PROVIDERS: ATTEND Internal Medicine
DX: C90.00 Multiple myeloma not having achieved remission (principal)
CPT/HCPCS: 80053; 81599; 83883; 84155; 84165; 85025; 86334

== ENCOUNTER 2021-05-22 07:16 | Emergency (ER) | payer OTHER ==
[2021-05-22 07:34] VITALS: BP 131/79
[2021-05-22] MEDS ORDERED: LIDOCAINE JELLY 2% 6 ML JEL.PF.APP TOP STA (07:44)
[2021-05-22] MEDS ORDERED: BUFFERED LIDOCAINE 10 ML SYRINGE SUBQ STA (08:04)
--- NOTE | 2021-05-22 08:20 | ED Physician Documentation ---
History of Present Illness - Stated complaint Stated Complaint: FB NOSE - Chief complaint Chief Complaint: Heent - History obtained from History obtained from: Patient, Family - History of Present Illness Timing: Today - Additonal information Additional information: 46-year-old female was laying on the couch today when her bent over to give her a kiss goodbye and when he stood up a pendant that was on his neck in the shape of a hook caught the inside of her nose and as he pulled up the hook went through the nares. There is a slight prudence on the hook and the hook is embedded in the nose. The hook is approximately 6 to 7 mm in diameter. 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 - Present Medications Home Medications: Ambulatory Orders Medication Instructions Recorded Confirmed Acyclovir 800 mg PO BID 09/21/18 05/22/21 Pomalidomide [Pomalyst] 2 mg PO DAILY 12/31/18 05/22/21 Ixazomib Citrate [Ninlaro] 2.3 mg PO DAILY 02/25/19 05/22/21 Ezetimibe [Zetia] 1 tab PO DAILY PM 04/05/21 05/22/21 Amox/Clav 875/125 [Augmentin] 1 each PO Q12H #10 tablet 05/22/21 - Allergies Allergies/Adverse Reactions: Allergies Allergy/AdvReac Type Severity Reaction Status Date / Time sulfamethoxazole Allergy Unknown Verified 05/22/21 07:35 [From Bactrim] trimethoprim [From Bactrim] Allergy Unknown Verified 05/22/21 07:35 lenalidomide [From Revlimid] AdvReac Hives Verified 05/22/21 07:35 - Social History Does the pt smoke?: No Smoking Status: Never smoker Does the pt drink ETOH?: No Does the pt have substance abuse?: No - Immunizations Immunizations are current?: Yes - POLST Patient has POLST: No PD ED PE NORMAL - Vitals Vital signs reviewed: Yes (Hypertensive) - General General: Alert and oriented X 3, No acute distress, Well developed/nourished - HEENT HEENT: PERRL, EOMI, Other (In the right nares there is an ornamental pendant that is in the shape of a hook) - Respiratory Respiratory: No respiratory distress - Derm Derm: Normal color, Warm and dry, No rash - Extremities Extremities: No deformity, No edema - Neuro Neuro: Alert and oriented X 3, 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, No motor deficit, No sensory deficit, Normal speech Eye Opening: Spontaneous Motor: Obeys Commands Verbal: Oriented GCS Score: 15 - Psych Psych: Normal mood, Normal affect Results - Vitals Vitals: Vital Signs - 24 hr // 07:20 Temperature 36.0 C L Heart Rate 82 Respiratory 16 Rate Blood Pressure 131/79 H O2 Saturation 99 Oxygen O2 Source Nasal cannula Procedures - Laceration (location) nose Length in cm: 1.5 Wound type: Linear, Clean Neurovascular status: Sensory intact, Motor intact, Vascular intact Anesthesia: Lidocaine 1%, With bicarb Wound preparation: Hibiclens, Wound explored, To the base Skin layer closure: Dermabond Other: Patient tolerated well, No complications, Neurovascular intact, Dressing applied, Tetanus UTD - FB removal FB location: Other (nose) FB removal preparation: Local anesthesia-specify (lidocaine 1% after 2% jelly failed) Removal method: Foreceps, Other (flap elevated over prudence) FB removal aftercare: No complications, Patient tolerated well, Removed successfully PD MEDICAL DECISION MAKING - ED course Complexity details: considered differential, d/w patient, d/w family ED course: 46-year-old female with a foreign body in the nasal ala I on the right side has had successful removal of the foreign body and the defect was closed with Dermabond. She is immunocompromised with a stem cell transplant and requests antibiotic prophylaxis for infection control. She is prescribed Augmentin 875, 5 days. Departure - Departure Disposition: 01 Home, Self Care Clinical Impression: Laceration with foreign body of nose, initial encounter Condition: Stable Instructions: ED Laceration Facial Skin Glue Follow-Up: MITCHEL HAWKINS DO [Primary Care Provider] - Prescriptions: Amox/Clav 875/125 [Augmentin] 1 each PO Q12H #10 tablet
== END 2021-05-22 08:44 | disposition home or self-care (01) ==
LOC: ED 07:16
DX: T17.1XXA Foreign body in nostril, initial encounter (principal); X58.XXXA Exposure to other specified factors, initial encounter
CPT/HCPCS: 12011; 99282

== ENCOUNTER 2021-10-16 08:00 | Outpatient (CLI) | payer OTHER | END 2021-10-16 08:01 | disposition home or self-care (01) | LOC: LAB.N 08:00 | PROVIDERS: ATTEND Physician Assistant Medical | DX: K30 Functional dyspepsia (principal); R11.2 Nausea with vomiting, unspecified; Z20.822 Contact with and (suspected) exposure to COVID-19 ==

== ENCOUNTER 2023-09-18 08:00 | Outpatient (CLI) | payer OTHER | END 2023-09-18 23:59 | disposition home or self-care (01) | LOC: LAB 08:00 | PROVIDERS: ATTEND Family Medicine | DX: R30.0 Dysuria (principal) | CPT/HCPCS: 87086; 87181 ==

== ENCOUNTER 2024-01-06 07:01 | Outpatient (CLI) | payer OTHER ==
[2024-01-06] MEDS ORDERED: GADOTERATE MEGLUMINE 10 MMOL/20 ML VIAL ONE (07:06)
[2024-01-06] MEDS: GADOTERATE MEGLUMINE 10 MMOL/20 ML VIAL IVP ONE (08:21)
--- NOTE | 2024-01-08 11:26 | MRI Report ---
PROCEDURE: Abdomen W/WO INDICATIONS: FATTY LIVER CONTRAST: CLARISCAN 17.1 ML TECHNIQUE: Coronal ultra fast SE, axial 2D spoiled GE in- and [id number]; axial breath-hold T2 fast SE. Dynam ic axial ultra fast GE during the administration of contrast; post-contrast coronal ultra fast GE or 2D spoiled GE with fat saturation from the hepatic dome to the iliac crests. Optional diffusion weig hted imaging and ADC may be performed. COMPARISON: CT 07/15/2020 FINDINGS: Image quality: Excellent. Lung bases and heart: Unremarkable. Liver: Marked hepatic steatosis (32% calculated). No suspicious mass. Hepatomegaly. Gallbladder and biliary tree: Focal adenomyomatosis of the gallbladder fundus. Spleen: No splenomegaly. Pancreas: No pancreatic ductal dilation. Adrenals: No adrenal nodule. Kidneys and ureters: No hydronephrosis. No renal cystic lesion which requires follow up. No solid mas s. Bowel and peritoneum: No bowel distension. No pathologic free fluid. Diverticulosis without evidence of diverticulitis. Lymph nodes: No central or retroperitoneal adenopathy. Vessels: No infrarenal aortic aneurysm. Bones: No aggressive osseous abnormality. Other: No significant ventral hernia. IMPRESSION: Severe hepatic steatosis. Correlate with LFTs, as elevated LFTs may indicate steatohepatitis. Reviewed by: Mariano Bain MD on 01/08/2024 11:25 AM PDT Approved by: Mariano Bain MD on 01/08/2024 11:25 AM PDT Station ID: [id number]
== END 2024-01-06 07:02 | disposition home or self-care (01) ==
LOC: DI 07:01
PROVIDERS: ATTEND Family Medicine
DX: K76.0 Fatty (change of) liver, not elsewhere classified (principal); R93.89 Abnormal findings on diagnostic imaging of other specified body structures; C90.00 Multiple myeloma not having achieved remission; K82.8 Other specified diseases of gallbladder
CPT/HCPCS: 74183; A9575

== ENCOUNTER 2024-04-09 15:30 | Outpatient (CLI) | payer OTHER | END 2024-04-09 15:45 | disposition home or self-care (01) | LOC: LAB.N 15:30 | PROVIDERS: ATTEND Family Medicine | DX: R30.0 Dysuria (principal) | CPT/HCPCS: 87086 ==